=== PATIENT | male | born 1990 | race Caucasian/White ===

== ENCOUNTER 2018-04-26 19:56 | Emergency (ER) | payer OTHER ==
[~2018-04-26] VITALS: Ht 160 cm; Wt 81.7 kg
[2018-04-26] MEDS ORDERED: SERTRALINE HCL50 MG PO (20:08)
[2018-04-26] MEDS ORDERED: AMPHETAMINE SA7.5 MG PO (20:13)
[2018-04-26 20:59] VITALS: BP 102/80
== END 2018-04-26 21:14 | disposition home or self-care (01) ==
LOC: ER 19:56
DX: S80.11XA Contusion of right lower leg, initial encounter (principal); Z88.0 Allergy status to penicillin; W18.39XA Other fall on same level, initial encounter; Y92.89 Other specified places as the place of occurrence of the external cause; Y99.0 Civilian activity done for income or pay; Y99.8 Other external cause status